=== PATIENT | male | born 1955 | race American Indian/Alaskan Native ===

== ENCOUNTER 2021-08-11 12:32 | Emergency (ER) | payer MEDICARE ==
--- NOTE | 2021-08-11 12:54 | Emergency Department Report ---
HPI - General Chief Complaint: Extremity Injury, Lower Time Seen by Provider: 08/11/21 12:45 - HPI HPI: 66-year-old -[place] male presents to the emergency department, sent in by his PCP, for evaluation of DVTs in his legs. Patient has a history of DVT for which he is on Coumadin and says he has been compliant with the medication. The patient is a poor historian, but it sounds like the patient may have had a recent Doppler ultrasound that showed that the size of the clot, or number of clots, is increasing. He complains of pain to the bilateral calves. He denies any other past medical history. He has not taken anything for symptoms prior to presentation. His pain is 4 out of 10 in intensity. It worsens with exertion, but no known alleviating factors. He is an occasional marijuana smoker but denies any tobacco use. He says that he does not know the reason for the previous DVT and does not have any history of bleeding/clotting disorders. ED Past Medical Hx - Past Medical History Previous Medical History?: Yes Hx Deep Vein Thrombosis: Yes Additional medical history: DVT - Social History Smoking Status: Never Smoker Substance Use Type: Alcohol - Medications Home Medications: Home Medications Medication Instructions Recorded Confirmed Last Taken Type Iron [Iron 18 MG TAB] 65 mg PO DAILY 01/23/13 01/23/13 Unknown History Warfarin [Coumadin] mg PO DAILY 01/23/13 01/23/13 01/22/13 History ED Review of Systems ROS: Stated complaint: DVT Other details as noted in HPI Comment: All other systems reviewed and negative Constitutional: denies: chills, fever Eyes: denies: eye pain, vision change ENT: denies: ear pain, throat pain Respiratory: denies: cough, shortness of breath Cardiovascular: denies: chest pain, palpitations Gastrointestinal: denies: abdominal pain, vomiting Genitourinary: denies: dysuria, discharge Musculoskeletal: myalgia. denies: joint swelling Skin: denies: rash, lesions Neurological: denies: numbness, paresthesias Physical Exam - Physical Exam Vital Signs: Vital Signs 08/11/21 12:33 Temperature 98.1 F Pulse Rate 76 Respiratory 16 Rate Blood Pressure 115/73 [Left] O2 Sat by Pulse 98 Oximetry Physical Exam: GENERAL: The patient is well-developed well-nourished. HENT: Normocephalic. Atraumatic. Patient has moist mucous membranes. EYES: Extraocular motions are intact. NECK: Supple. Trachea is midline. CHEST/LUNGS: Clear to auscultation. There is no respiratory distress noted. HEART/CARDIOVASCULAR: Regular. There is no tachycardia. There is no murmur. ABDOMEN: Abdomen is soft, nontender. Patient has normal bowel sounds. SKIN: Skin is warm and dry. NEURO: The patient is awake, alert, and oriented. The patient is cooperative. Normal speech. MUSCULOSKELETAL: There is some bilateral calf tenderness to palpation. There is no limitation range of motion. ED Course Vital Signs 08/11/21 12:33 Temperature 98.1 F Pulse Rate 76 Respiratory 16 Rate Blood Pressure 115/73 [Left] O2 Sat by Pulse 98 Oximetry ED Medical Decision Making - Lab Data Result diagrams: 08/11/21 13:03 08/11/21 13:03 Lab Results 08/11/21 08/11/21 08/11/21 Range/Units 13:03 13:03 13:03 WBC 3.4 L (4.5-11.0) K/mm3 RBC 4.65 (3.65-5.03) M/mm3 Hgb 15.0 (11.8-15.2) gm/dl Hct 44.4 (35.5-45.6) % MCV 96 H (84-94) fl MCH 32 (28-32) pg MCHC 34 (32-34) % RDW 15.1 (13.2-15.2) % Plt Count 226 (140-440) K/mm3 Lymph % (Auto) 42.9 H (13.4-35.0) % Morton % (Auto) 11.9 H (0.0-7.3) % Eos % (Auto) 3.5 (0.0-4.3) % Baso % (Auto) 2.6 H (0.0-1.8) % Lymph # (Auto) 1.5 (1.2-5.4) K/mm3 Morton # (Auto) 0.4 (0.0-0.8) K/mm3 Eos # (Auto) 0.1 (0.0-0.4) K/mm3 Baso # (Auto) 0.1 (0.0-0.1) K/mm3 Seg Neutrophils % 39.1 L (40.0-70.0) % Seg Neutrophils # 1.3 L (1.8-7.7) K/mm3 PT 38.5 H (12.2-14.9) Sec. INR 3.35 H (0.87-1.13) APTT 54.8 H (24.2-36.6) Sec. Sodium 137 (137-145) mmol/L Potassium 4.8 (3.6-5.0) mmol/L Chloride 102.8 (98-107) mmol/L Carbon Dioxide 22 (22-30) mmol/L Anion Gap 17 mmol/L BUN 6 L (9-20) mg/dL Creatinine 0.8 (0.8-1.3) mg/dL Estimated GFR > 60 ml/min BUN/Creatinine Ratio 8 % Glucose 71 L (75-100) mg/dL Calcium 8.8 (8.4-10.2) mg/dL - Radiology Data Radiology results: report reviewed DUPLEX DOPPLER LOWER EXTREMITY VEINS, BILATERAL INDICATION / CLINICAL INFORMATION: bilateral LE pain, hx of DVT on coumadin. TECHNIQUE: Duplex doppler imaging was performed through the veins of both lower extremities using venous compression and other maneuvers. COMPARISON: None available. FINDINGS: RIGHT COMMON FEMORAL VEIN: Negative. RIGHT FEMORAL VEIN: Chronic thrombus. No acute thrombus. RIGHT POPLITEAL VEIN: Negative. RIGHT CALF VEINS: Negative. LEFT COMMON FEMORAL VEIN: Negative. LEFT FEMORAL VEIN: Negative. LEFT POPLITEAL VEIN: Chronic thrombus. No acute thrombus. LEFT CALF VEINS: Negative. ADDITIONAL FINDINGS: None. IMPRESSION: 1. Chronic appearing DVT of the right femoral vein and left popliteal vein. 2. No evidence of acute DVT. - Medical Decision Making This patient presents with the complaint of bilateral calf pain and being sent in by his PCP for concern of new or worsening DVTs. The patient is therapeutic with his Coumadin as he has an INR of about 3.3. The rest of the blood work is unremarkable. Bilateral lower extremity venous Doppler ultrasound was negative for any acute DVT but does show chronic DVT in the right lower extremity. Vital signs reassuring including being afebrile. The patient is able to ambulate without any difficulty or instability. He will be discharged home to follow-up with his primary care physician and has been given an outpatient referral for vascular surgery if he would like to follow-up regarding his chronic DVTs. Critical Care Time: No Critical care attestation.: If time is entered above; I have spent that time in minutes in the direct care of this critically ill patient, excluding procedure time. ED Disposition Clinical Impression: History of DVT (deep vein thrombosis), Anticoagulation adequate Disposition: 01 HOME / SELF CARE / HOMELESS Is pt being admited?: No Condition: Stable Instructions: Bleeding Precautions When on Anticoagulant Therapy, Adult, Deep Vein Thrombosis Additional Instructions: Please follow-up with your primary care physician in the next few days. I have given you a referral for a local vascular surgeon, Dr. Degroot, to follow-up regarding your history of DVTs. Return to the emergency department with any worsening of your symptoms or with any acute distress. Referrals: AMADA DEGROOT MD [Staff Physician] - 3-5 Days Time of Disposition: 14:31
[2021-08-11 13:42] LABS: INR 3.35 (0.87-1.13)
[2021-08-11 13:43] LABS: Partial Thromboplastin Time 54.8 Sec. (24.2-36.6)
--- NOTE | 2021-08-11 14:04 | Vascular Lab Report ---
DUPLEX DOPPLER LOWER EXTREMITY VEINS, BILATERAL INDICATION / CLINICAL INFORMATION: bilateral LE pain, hx of DVT on coumadin. TECHNIQUE: Duplex doppler imaging was performed through the veins of both lower extremities using venous prakash brianna and other maneuvers. COMPARISON: None available. FINDINGS: RIGHT COMMON FEMORAL VEIN: Negative. RIGHT FEMORAL VEIN: Chronic thrombus. No acute thrombus. RIGHT POPLITEAL VEIN: Negative. RIGHT CALF VEINS: Negative. LEFT COMMON FEMORAL VEIN: Negative. LEFT FEMORAL VEIN: Negative. LEFT POPLITEAL VEIN: Chronic thrombus. No acute thrombus. LEFT CALF VEINS: Negative. ADDITIONAL FINDINGS: None. IMPRESSION: 1. Chronic appearing DVT of the right femoral vein and left popliteal vein. 2. No evidence of acute DVT. Technologist reported findings to Dr. Boo in the emergency department following image acquisition. Signer Name: Tacos Cuenca MD Signed: 08/11/2021 2:00 PM Workstation Name: [email or web address]
[2021-08-11 14:14] LABS: BUN/Creatinine Ratio 8; Blood Urea Nitrogen 6 mg/dL (9-20); Calcium 8.8 mg/dL (8.4-10.2); Hemolysis Index 33
[2021-08-11 14:28] LABS: Basophils # (Auto) 0.1 K/mm3 (0.0-0.1); Basophils % (Auto) 2.6 % (0.0-1.8); Eosinophils # (Auto) 0.1 K/mm3 (0.0-0.4); Eosinophils % (Auto) 3.5 % (0.0-4.3); Hematocrit 44.4 % (35.5-45.6); Lymphocytes # (Auto) 1.5 K/mm3 (1.2-5.4); Lymphocytes % (Auto) 42.9 % (13.4-35.0); Mean Corpuscular HGB Conc 34 % (32-34); Mean Corpuscular Volume 96 fl (84-94); Monocytes # (Auto) 0.4 K/mm3 (0.0-0.8); Monocytes % (Auto) 11.9 % (0.0-7.3); Platelet Count 226 K/mm3 (140-440); Red Blood Count 4.65 M/mm3 (3.65-5.03); Red Cell Distribution Width 15.1 % (13.2-15.2)
[2021-08-11 15:34] VITALS: BP 136/74
== END 2021-08-11 15:42 | disposition home or self-care (01) ==
LOC: ED 12:32
DX: Z86.718 Personal history of other venous thrombosis and embolism (principal); D68.318 Other hemorrhagic disorder due to intrinsic circulating anticoagulants, antibodies, or inhibitors
CPT/HCPCS: 36415; 80048; 85025; 85610; 85730; 93970; 99284